=== PATIENT | female | born 1925 | race Caucasian/White ===

== ENCOUNTER → 2016-05-23 | Outpatient (CLI) | payer MEDICARE ==
--- NOTE | 2016-05-23 14:27 | KCIC ---
PROCEDURE Renal ultrasound HISTORY Increasing BUN and creatinine, right kidney mass COMPARISON November 06, 2015 FINDINGS Multiple sonographic images of the kidneys and urinary bladder are submitted. Right kidney measured 10.8 x 4.2 x 4.9 centimeters. Left kidney measured 10.6 x 3.9 x 3.7 centimeters. There is no hydronephrosis of either kidney. There is again a solid mass of the mid to inferior right kidney up to 1.7 x 1.6 x 1.7 centimeters, fairly similar in size. There is internal vascularity on color Doppler imaging. Right renal parenchyma is appropriately relatively hypoechoic relative to the adjacent liver parenchyma. Urinary bladder is not well-distended for exam, ureteral jets not demonstrated during exam. IMPRESSION 1. There is similar size of solid right renal mass, concerning for renal cell carcinoma until proven otherwise. There is no hydronephrosis of either kidney, no new abnormality. Electronically signed by: Derek Downey MD (May 23, 2016 14:26:13)
== END | disposition home or self-care (01) ==
LOC: KCIC US 12:00
PROVIDERS: ATTEND Urology
DX: N28.89 Other specified disorders of kidney and ureter (principal)
CPT/HCPCS: 76770

== ENCOUNTER → 2016-11-17 | Outpatient (CLI) | payer BC, MEDICARE ==
--- NOTE | 2016-11-17 12:42 | KCIC ---
Indication: Right renal mass, follow-up. Correlation is made with prior ultrasound from 05/23/2016. The right kidney measures 10.8 x 3.9 x 4.3 cm and the left kidney measures 10.5 x 3.2 x 4.1 cm. Previously noted solid-appearing mass in the mid right kidney is again noted measuring 16 mm x 18 mm x 18 mm. This compares with 17 mm x 16 mm x 17 mm on prior exam. This again does show internal vascularity. The left kidney is unremarkable. No calculi are seen. There is no hydronephrosis. IMPRESSION: Solid right renal mass, very similar in size when compared with examination from 05/23/2016. Electronically signed by: Tristan Watts MD (11/17/2016 12:39 PM) [id number]
== END | disposition home or self-care (01) ==
LOC: KCIC US 10:32
PROVIDERS: ATTEND Urology
DX: N28.89 Other specified disorders of kidney and ureter (principal)
CPT/HCPCS: 76770

== ENCOUNTER → 2017-05-06 | Outpatient (CLI) | payer BC ==
--- NOTE | 2017-05-06 12:27 | KCIC ---
Renal ultrasound History:Solid right kidney mass. Routine follow-up. Technique: Sonographic imaging of both kidneys. COMPARISON: November 17, 2016. Findings: Aorta:No evidence of aneurysm. Inferior vena cava:Appears patent Right kidney measures 11.0 cm length. Solid right renal mass is again identified, measures 19 mm x 18 mm x 17 mm.This compares with 19 mm x 18 mm x 16 mm on the prior study. Some internal vascularity is noted. Left kidney measures 10.2 cm longitudinal.. No evidence of hydronephrosis, shadowing calculus or renal lesion. Urinary bladder: Patient voided, urinary bladder is not adequately visualized. Ureteric jets are not visualized. 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 This only measures minimally greater in size, question true growth versus slight difference in technique. Electronically signed by: Boris Manzanares MD (05/06/2017 12:24 PM) [facility]
== END | disposition home or self-care (01) ==
LOC: KCIC US 10:41
PROVIDERS: ATTEND Urology
DX: D49.511 Neoplasm of unspecified behavior of right kidney (principal)
CPT/HCPCS: 76770

== ENCOUNTER → 2017-06-02 | Outpatient (CLI) | payer BC ==
[2017-06-02 12:06] LABS: BASO % 0 % (0-3); EOS % 0 % (0-3); HEMATOCRIT 32.7 % (36.0-47.0); HEMOGLOBIN 10.5 g/dL (12.0-15.5); LYMPH # 1.2 x10^3/uL (1.0-4.8); LYMPH % 24 % (24-48); MEAN CORPUSCULAR HEMOGLOBIN 30 pg (25-35); MEAN CORPUSCULAR HGB CONC 32 g/dL (31-37); MEAN CORPUSCULAR VOLUME 92 fL (79-100); MONO # 1.4 x10^3/uL (0.0-1.1); MONO % 28 % (0-9); NEUT # 2.3 x10^3uL (1.8-7.7); NEUT % 47 % (31-73); PLATELET COUNT 153 x10^3/uL (140-400); RED BLOOD COUNT 3.55 x10^6/uL (3.50-5.40); WHITE BLOOD COUNT 4.9 x10^3/uL (4.0-11.0)
[2017-06-02 12:09] LABS: ADD MAN DIFF? YES
[2017-06-02 12:19] LABS: ANION GAP 8 (6-14); BLOOD UREA NITROGEN 14 mg/dL (7-20); CALCIUM 8.6 mg/dL (8.5-10.1); CARBON DIOXIDE 29 mmol/L (21-32); CHLORIDE 106 mmol/L (98-107); CREATININE 0.8 mg/dL (0.6-1.0); GFR 67.5; GLUCOSE 86 mg/dL (70-99); MAGNESIUM 2.2 mg/dL (1.8-2.4); POTASSIUM 3.7 mmol/L (3.5-5.1); SODIUM 143 mmol/L (136-145)
[2017-06-02 12:33] LABS: THYROID STIM HORMONE (TSH) 3.714 uIU/mL (0.358-3.74)
[2017-06-02 15:56] LABS: % ATYL 3 % (0-0); % BANDS 1 % (0-9); % LYMPHS 24 % (24-48); % MONOS 29 % (0-10); % SEGS 43 % (35-66); ANISOCYTOSIS SLIGHT; MICROCYTOSIS SLIGHT; PLT ESTIMATE ADEQUATE (ADEQUATE)
== END | disposition home or self-care (01) ==
LOC: LAB 11:37
DX: I10 Essential (primary) hypertension (principal)
CPT/HCPCS: 36415; 80048; 83735; 84443; 85007; 85025